=== PATIENT | male | born 1985 | race Caucasian/White ===

== ENCOUNTER 2018-06-21 12:50 | Emergency (ER) | payer OTHER ==
[~2018-06-21] VITALS: Ht 177.8 cm; Wt 85.3 kg
[2018-06-21] MEDS ORDERED: [UNRECOGNIZED DRUG - OTHER] (12:55)
[2018-06-21 13:15] LABS: ABSOLUTE BASOPHILS 0.1 thou/uL (0.0-0.2); ABSOLUTE EOSINOPHILS 0.2 thou/uL (0.0-0.7); ABSOLUTE MONOCYTES 0.7 thou/uL (0.0-1.2); ABSOLUTE NEUTROPHILS 3.8 thou/uL (1.6-8.1); EOSINOPHILS 2.6 %; HEMATOCRIT 44.4 % (42.0-52.0); HEMOGLOBIN 15.1 gm/dL (14.0-18.0); LYMPHOCYTES 29.8 %; MCH 30.7 pg (26.0-34.0); MCHC 34.1 g/dL (28.0-37.0); MCV 90.3 fL (80.0-100.0); MONOCYTES 10.7 %; MPV 8.3 fl. (7.2-11.1); NUCLEATED RBCS 0 /100WBC; PLATELET COUNT* 293 thou/uL (150-400); POLYS 55.9 %; RBC 4.92 mil/uL (4.50-6.00); RDW-CV 13.6 % (10.5-14.5); WBC 6.8 thou/uL (4.0-11.0)
[2018-06-21 13:26] LABS: ANION GAP 7 mmol/L (7-16); BUN 13 mg/dL (7-18); CALCIUM 8.5 mg/dL (8.5-10.1); CHLORIDE 103 mmol/L (98-107); CO2 29 mmol/L (21-32); GLUCOSE 83 mg/dL (70-99); SODIUM 139 mmol/L (136-145)
[2018-06-21 13:49] LABS: ALBUMIN 3.7 g/dL (3.4-5.0); ALKALINE PHOSPHATASE 97 U/L (46-116); APTT 26.8 Seconds (25.0-31.3); CK-MB MASS 0.9 ng/mL (<0.5-3.6); NT-PRO BRAIN NAT PEPTIDE 5 pg/mL (<300); PROTIME 9.9 Seconds (9.20-11.50); SGOT 15 U/L (15-37); SGPT 25 U/L (30-65); TOTAL BILIRUBIN 0.3 mg/dL (<0.1-1.0); TOTAL PROTEIN 7.4 g/dL (6.4-8.2); TROPONIN-I LEVEL <0.06 ng/mL (<0.06)
[2018-06-21 14:40] VITALS: BP 143/80
--- NOTE | 2018-06-21 18:43 | EKG ---
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 : 1985 Requested By: Praneeth Agee Order Number: [id number] MD: Wally Patel Measurements Intervals [place] Rate: 81 P: 33 MS: 114 QRS: 66 QRSD: 91 T: 51 QT: 361 QTc: 419 Interpretive Statements Sinus rhythm Atrial premature complex Borderline short MS interval ST elev, probable normal early repol pattern Baseline wander in lead(s) II,III,aVF No previous ECG available for comparison Electronically Signed On 06-21-2018 18:43:39 [employer] by Wally Patel [email or web address] <ELECTRONICALLY SIGNED> By: Wally Patel MD, [facility] 06/21/18 [id number] 125 Wally Patel MD, [facility] /EPI
== END 2018-06-21 14:41 | disposition home or self-care (01) ==
LOC: M.ERS 12:50
PROVIDERS: Emergency Medicine
DX: R07.89 Other chest pain (principal); F41.9 Anxiety disorder, unspecified